=== PATIENT | male | born 1985 | race Caucasian/White ===

== ENCOUNTER 2017-12-12 10:57 | Emergency (ER) | payer MEDICARE, MEDICAID ==
[~2017-12-12] VITALS: Ht 182.9 cm; Wt 67.0 kg
[2017-12-12 11:02] VITALS: BP 141/100
[2017-12-12] MEDS ORDERED: LORazepam 1 MG tablet PO ONE (11:20)
[2017-12-12] MEDS ORDERED: LIDOcaine 1.5% w/epinephrine 1:200,000 5ml ampul IJ ONE (11:20)
[2017-12-12] MEDS ORDERED: SULF1TAB49 PO (12:22)
[2017-12-12] MEDS ORDERED: CEPH-572 PO (12:23)
== END 2017-12-12 13:05 | disposition home or self-care (01) ==
LOC: ER 10:57
DX: L03.012 Cellulitis of left finger (principal); F12.10 Cannabis abuse, uncomplicated; Z79.899 Other long term (current) drug therapy
CPT/HCPCS: 26011; 99284; A6449; J3490

== ENCOUNTER 2018-11-20 11:39 | Outpatient (CLI) | payer MEDICARE, MEDICAID | END 2018-11-20 12:33 | disposition home or self-care (01) | LOC: ORTHO 11:39 | PROVIDERS: ATTEND Orthopaedic Surgery | DX: M70.22 Olecranon bursitis, left elbow (principal); F17.200 Nicotine dependence, unspecified, uncomplicated | CPT/HCPCS: 73080; 99213 ==

== ENCOUNTER 2019-02-12 20:56 | Emergency (ER) | payer MEDICARE, MEDICAID ==
[~2019-02-12] VITALS: Ht 182.9 cm; Wt 49.0 kg
--- NOTE | 2019-02-13 00:10 | NUR ---
PATIENT IS AWAITING EVAL BY . PAIN RIGHT ELBOW. PATIENT BELIEVES HE MAY HAVE A DISLOCATION BACED ON PREVIOUS HISTORY. HE FELT A SPONTANIOUS "POP," IN THE RIGHT ELBOW REGION AROUND 2200 HOURS YESTERDAY.
[2019-02-13] MEDS ORDERED: fentaNYL intranasal KIT NAS STA (00:22)
[2019-02-13] MEDS ORDERED: HYDROcodone/acetaminophen 5mg/325mg tablet PO ONE (00:55)
--- NOTE | 2019-02-13 00:55 | NUR ---
Right elbow is reduced by ER DO on second attempt. Good right radial pulses. Good distal CSM's.
--- NOTE | 2019-02-13 00:58 | NUR ---
TERI KELLEY is at bedside.
--- NOTE | 2019-02-13 01:13 | NUR ---
Patient is resting quieltly. A friend is driving her to pick him up. Patients post recuction xray is done. Patient will await friend in the waiting room.
[2019-02-13 01:27] VITALS: BP 112/68
== END 2019-02-13 01:30 | disposition home or self-care (01) ==
LOC: ER 20:57
DX: S53.194A Other dislocation of right ulnohumeral joint, initial encounter (principal); F12.90 Cannabis use, unspecified, uncomplicated; X58.XXXA Exposure to other specified factors, initial encounter; Y93.89 Activity, other specified; Y92.89 Other specified places as the place of occurrence of the external cause; Y99.8 Other external cause status
CPT/HCPCS: 24600; 73070; 73080; 99284; J3010

== ENCOUNTER 2019-04-16 18:35 | Emergency (ER) | payer MEDICARE, MEDICAID ==
[~2019-04-16] VITALS: Ht 182.9 cm; Wt 67.7 kg
--- NOTE | 2019-04-16 19:18 | NUR ---
PT STATES THAT HE HAS A FEAR OF NEEDLES AND REFUSES FOR IV TO BE PLACED OR LABS DRAWN. PT EDUCATED THAT REFUSING LABS AND IV WILL DELAY CARE, AND COULD BE HARMFUL TO PT. PT STILL REFUSED
--- NOTE | 2019-04-16 19:39 | NUR ---
PT. IS REFUSSING TO LET LAB DRAW HIS BLOOD AFTER MULTIPLE EXPLINATION OF WHY WE NEEDED IT.
[2019-04-16 20:34] VITALS: BP 103/66
== END 2019-04-16 20:40 | disposition home or self-care (01) ==
LOC: ER 18:37
DX: R07.89 Other chest pain (principal); F12.90 Cannabis use, unspecified, uncomplicated
CPT/HCPCS: 71045; 93005; 99283; 99284

== ENCOUNTER 2019-08-23 09:49 | Emergency (ER) | payer MEDICARE, MEDICAID ==
[~2019-08-23] VITALS: Ht 182.9 cm; Wt 62.1 kg
[2019-08-23] MEDS ORDERED: LIDOcaine 1% W/epiNEPHrine 1:200,000 10ml vial IJ ONE (11:05)
[2019-08-23] MEDS ORDERED: LORazepam 1 MG tablet PO ONE (11:05)
[2019-08-23 12:08] VITALS: BP 134/104
[2019-08-23] MEDS ORDERED: LIDOcaine/epinephrine TOPICAL 5 ML BTL TOP ONE (12:15)
--- NOTE | 2019-08-23 13:04 | NUR ---
provider at bedside procedure set up.
[2019-08-23] MEDS ORDERED: BACDS PO (13:24)
[2019-08-23] MEDS ORDERED: CEPH250T PO (13:24)
== END 2019-08-23 13:39 | disposition home or self-care (01) ==
LOC: ER 09:50
DX: L02.511 Cutaneous abscess of right hand (principal); F12.90 Cannabis use, unspecified, uncomplicated; Z79.899 Other long term (current) drug therapy
CPT/HCPCS: 26010; 99283

== ENCOUNTER 2020-02-24 09:53 | Emergency (ER) | payer MEDICARE, MEDICAID ==
[~2020-02-24] VITALS: Ht 182.9 cm; Wt 62.2 kg
[2020-02-24 09:54] VITALS: BP 121/83
[2020-02-24] MEDS ORDERED: AMOX-422 PO (11:07)
[2020-02-24] MEDS ORDERED: ondansetron 4mg rapidly disintigrating tab PO ONE (11:10)
[2020-02-24] MEDS ORDERED: HYDROcodone/acetaminophen 5mg/325mg tablet PO ONE (11:10)
== END 2020-02-24 11:27 | disposition home or self-care (01) ==
LOC: ER 09:53
DX: K02.9 Dental caries, unspecified (principal); R22.0 Localized swelling, mass and lump, head; F12.90 Cannabis use, unspecified, uncomplicated; Z79.2 Long term (current) use of antibiotics
CPT/HCPCS: 99283

== ENCOUNTER 2020-08-03 15:58 | Emergency (ER) | payer MEDICARE, MEDICAID ==
[~2020-08-03] VITALS: Ht 182.9 cm; Wt 63.2 kg
[2020-08-03 18:35] VITALS: BP 120/71
== END 2020-08-03 18:26 | disposition home or self-care (01) ==
LOC: ER 15:59
DX: F15.10 Other stimulant abuse, uncomplicated (principal); F12.90 Cannabis use, unspecified, uncomplicated; Z02.89 Encounter for other administrative examinations
CPT/HCPCS: 99281

== ENCOUNTER 2023-07-17 13:38 | Emergency (ER) | payer MEDICARE, MEDICAID ==
[~2023-07-17] VITALS: Ht 180.3 cm; Wt 72.8 kg
[2023-07-17] MEDS ORDERED: NAPR-56 PO (13:48)
[2023-07-17] MEDS ORDERED: DOXY-1 PO ×2 (13:48→14:31)
[2023-07-17 13:50] VITALS: BP 137/95; PULSE 74; RESP 18; TEMP 98.3; O2SAT 99
== END 2023-07-17 14:14 | disposition home or self-care (01) ==
LOC: ER 13:38
DX: K04.7 Periapical abscess without sinus (principal); F12.10 Cannabis abuse, uncomplicated; F15.10 Other stimulant abuse, uncomplicated
CPT/HCPCS: 99283